=== PATIENT | male | born 1990 | race Caucasian/White ===

== ENCOUNTER 2023-10-07 13:27 | Emergency (ER) | payer OTHER, SELFPAY ==
--- NOTE | ~2023-10-07 | XR_ITS ---
EXAMINATION: Left shoulder and left scapula x-ray CLINICAL INFORMATION: Injury. Pain. COMPARISON: None. TECHNIQUE: 3 views of the left shoulder and 2 views of the left scapula FINDINGS: Bone alignment is normal. No fracture or dislocation. Normal joint spaces. Normal soft tissues. XR/XR shoulder LT min 2V IMPRESSION: Unremarkable examination.
--- NOTE | ~2023-10-07 | XR_ITS ---
EXAMINATION: Left shoulder and left scapula x-ray CLINICAL INFORMATION: Injury. Pain. COMPARISON: None. TECHNIQUE: 3 views of the left shoulder and 2 views of the left scapula FINDINGS: Bone alignment is normal. No fracture or dislocation. Normal joint spaces. Normal soft tissues. XR/XR scapula LT IMPRESSION: Unremarkable examination.
[2023-10-07 13:30] VITALS: BP 180/91; PULSE 81; RESP 16; TEMP 36.6; O2SAT 98; BMI 19.4
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
[2023-10-07 13:57] VITALS: RESP 16
[2023-10-07 15:16] VITALS: BP 123/84; PULSE 68; RESP 20; TEMP 36.8; O2SAT 99
--- NOTE | 2023-10-07 16:49 | PC.NURSE ---
DISCHARGED BY PROVIDER
== END 2023-10-07 16:50 | disposition home or self-care (01) ==
PROVIDERS: Emergency Provider Student in an Organized Health Care Education/Training Program
DX: S40.012A Contusion of left shoulder, initial encounter (principal); S40.212A Abrasion of left shoulder, initial encounter; V09.9XXA Pedestrian injured in unspecified transport accident, initial encounter; Y93.89 Activity, other specified; Y92.410 Unspecified street and highway as the place of occurrence of the external cause; Y99.8 Other external cause status; M54.9 Dorsalgia, unspecified; M25.512 Pain in left shoulder
CPT/HCPCS: 73010; 73030; 99283; 99284